=== PATIENT | male | born 1985 | race Two or more races ===

== ENCOUNTER 2021-10-08 12:27 | Emergency (ER) | payer OTHER ==
[~2021-10-08] VITALS: Ht 157.5 cm; Wt 68.0 kg
[2021-10-08 12:27] VITALS: BP 130/60
--- NOTE | 2021-10-08 12:59 | NUR ---
ALECIA DEAL [facility] [phone]
--- NOTE | 2021-10-08 13:37 | NUR ---
CALLED [facility] [phone] [facility].
[2021-10-08] MEDS ORDERED: BUPR-96 PO (14:29)
[2021-10-08] MEDS ORDERED: QUET100T PO (14:29)
--- NOTE | 2021-10-08 14:46 | NUR ---
Patient discharged to home in stable condition. Written and verbal after care instructions given. Patient verbalizes understanding of instruction.
== END 2021-10-08 14:46 | disposition home or self-care (01) ==
LOC: ER 12:43
DX: Z60.2 Problems related to living alone (principal); F32.A Depression, unspecified; F20.9 Schizophrenia, unspecified; J45.909 Unspecified asthma, uncomplicated; Z79.899 Other long term (current) drug therapy